=== PATIENT | male | born 1950 | race Caucasian/White ===

== ENCOUNTER 2020-03-31 23:30 | Emergency (ER) | payer OTHER ==
--- OUTSIDE RECORDS SUMMARY | 2020-03-31 23:32 | XMS REPORT | Clinical Summary ---
:1950 Author Organization [facility] Address [address] [place] [address] Care Team Providers Name Role Phone Stephanie Sahu MD Primary Care Provider Allergies Active Allergy Reactions Severity Noted Date Comments Penicillins 07/20/2016 Medications Medication Sig Dispensed Refills Start Date End Date Status montelukast Take 10 mg by 3 05/08/2016 Act haresh (SINGULAIR) 10 mg mouth once tablet daily. candesartan-hydrochl 0 05/29/2018 Active orothiazid (ATACAND HCT) 32-12.5 mg per tablet levothyroxine Take 175 mcg 0 11/20/2014 Ac tive (SYNTHROID, LEVOXYL) by mouth. 175 mcg tablet ezetimibe (ZETIA) 10 Take 10 mg by 3 07/24/2018 Active mg tablet mouth daily. amLODIPine (NORVASC) TAKE 1 TABLET 90 tablet 0 06/19/2019 Active 10 mg BY MOUTH ONCE tabletIndications: DAILY Essential hypertension, Carotid artery disease, unspecified laterality, unspecified type (HCC) amLODIPine (NORVASC) Take 1 tablet 90 tablet 3 02/19/201805/25 Discontinued 10 mg (10 mg total) tabletIndications: by mouth Essential daily. hypertension, Carotid artery disease, unspecified laterality, unspecified type (HCC) Active Problems Problem Noted Date Mixed hyperlipidemia 08/27/2018 Essential hypertension 01/16/2017 Carotid artery disease 01/16/2017 Carotid disease, bilateral 07/20/2016 Pure hypercholesterolemia 07/20/2016 Encounters Date Type Specialty Care Team Description 10/07/2019 Travel 08/21/2019 Travel 06/18/2019 Refill Cardiology Houston Pollard MD Med Refi ll after 03/31/2019 Medical History Medical History Date Comments Hyperlipidemia Hypertension Atrial fibrillation (HCC) Carotid artery occlusion Disease of thyroid gland Family History Medical History Relation Name Comments Diabetes Brother Cancer Father Heart attack Mother Heart disease Mother Hypertension Mother Relation Name Status Comments Brother Father Mother Social History Tobacco Use Types Packs/Day Years Used Date Never Smoker Smokeless Tobacco: Never Used Alcohol Use Drinks/Week oz/Week Comments No Sex Assigned at Date Recorded Not on file Last Filed Vital Signs Not on file Plan of Treatment Health Maintenance Due Date Last Done Comments COLONOSCOPY SCREENING 2002 SHINGLES VACCINES (#1) 2002 65+ PNEUMOCOCCAL VACCINE (1 of 1 - PPSV23) 2017 INFLUENZA VACCINE 11/22/2019 Procedures Procedure Name Priority Date/Time Associated Diagnosis Comme nts US CAROTID DUPLEX Routine 10/07/2019 4:34 PM Essential Res ults for this BILATERAL CDT hypertension procedure are in Mixed hyperlipid emia the results Bilateral carotid section. artery stenosis after 03/31/2019 Results Us carotid duplex (10/07/2019 4:34 PM CDT) Specimen Narrative Performed At [facility] Carotid Sandhya ry Ultrasound Report Pat.Name: JOSÉ KLEIN Pat.ID: [id number] .Date: 10/07/2019 Refer.MD: HOUSTON POLLARD MD Exam Time: 3:52:00 PM Study Type:C chaunceytid Age: 7 1950,68Y Sex: MALE Sonogrphr: Carmella Ellis RVT Pat. [facility] ol: [place], CPT - 4: 20017 Echo Liseth nt ID:[id number] Order ID: [id number] Reason for Study:Carotid artery stenosis , Follow up study, HLD, HTN Race: SUMMARY: CAROTID ARTERY SCAN RIGHT: There is smooth intimal lining in the common carotid artery. There is soft on hard plaque noted in th e bulb extending into the proximal internal and external carotid a rtery. Colorflow is disturbed with elevated velocities. There is an tegrade flow in the vertebral artery. LEFT: There is smooth intimal li abram in the common carotid artery. There is hard and soft plaque no kenan in the bulb extending into the proximal internal and external carot id artery. Colorflow is minimally disturbed. There is antegrad e flow in the vertebral artery. PRELIMINARY FINDINGS 1. 60-70% stenosis in the right bulb/i nternal carotid artery. 2. <50% stenosis in the left bulb/international marketing manager al carotid artery. 3. >50% stenosis in the bilateral rechecker al carotid artery. 4. There is antegrade flow in the verteb ral artery, bilaterally. In comparison to previous study, finding s demonstrate progression of disease on the right. PHYSICIAN INTERPRETATION Bilateral carotid duplex exam demonstrat es soft on hard atherosclerotic plaque with 60-70% stenosis in the right bulb/international marketing manager al carotid artery. <50% stenosis in the left bulb/internal carotid artery. >50% stenosis in the bilateral external carotid artery. Antegrade flow in the vertebral artery, bilaterally. FINDINGS: Carotid Findings: Right Left Verteb.Flw Antegrade Antegrade Subclavian Triphasic Triphasic MEASUREMENTS: DOPPLER Right CCA Dist CCA Dist PSV 77.4 cm/s CCA Dist EDV 12.4 cm/s Right CCA Mid CCA Mid PSV 69.6 cm/s CCA Mid EDV 9.28 cm/s Right CCA Prox CCA Prox PSV 108 cm/s CCA Prox EDV 10.8 cm/s Right Bulb Bulb PSV 173 cm/s Bulb EDV 37.1 cm/s Right ECA Prox ECA Prox PSV 189 cm/s ECA Prox EDV 12.4 cm/s Right ICA Dist ICA Dist PSV 93.3 cm/s ICA Dist EDV 28 cm/s Right ICA Mid ICA Mid PSV 132 cm/s ICA Mid EDV 28 cm/s Right ICA Prox ICA Prox PSV 278 cm/s ICA Prox EDV 65 cm/s Right Vertebral Vertebral PSV 53 cm/s Vertebral EDV 9.76 cm/s Left CCA Dist CCA Dist PSV 63.4 cm/s CCA Dist EDV 11.2 cm/s Left CCA Mid CCA Mid PSV 90.9 cm/s CCA Mid EDV 13.7 cm/s Left CCA Prox CCA Prox PSV 118 cm/s CCA Prox EDV 15.4 cm/s Left Bulb Bulb PSV 56.9 cm/s Bulb EDV 10.9 cm/s Left ECA ECA PSV 162 cm/s ECA EDV 5.6 cm/s Left ICA Dist ICA Dist PSV 100 cm/s ICA Dist EDV 27.9 cm/s Left ICA Mid ICA Mid PSV 83.6 cm/s ICA Mid EDV 20.9 cm/s Left ICA Prox ICA Prox PSV 59.9 cm/s ICA Prox EDV 16.7 cm/s Left Vertebral Vertebral PSV 69.7 cm/s Vertebral EDV 12.5 cm/s Left SCA Prox SCA Prox PSV 177 cm/s SCA Prox EDV 0 cm/s Left ECA Prox ECA Prox PSV 162 cm/s ECA Prox EDV 6 cm/s Right SCA Prox SCA Prox PSV 129 cm/s Right ICA/CCA Ratio ICA/CCA PSV 3.99 Left ICA/CCA Ratio ICA/CCA PSV 0.659 Signed 10/09/2019 06:35 AM Houston Pollard MD Procedure Note Interface, Radiology Results In - 2019 6:35 AM CDT [facility] Carotid Artery Ultras ound Report Pat.Name: JOSÉ KLEIN Pat.I D: [id number] St.Date: 10/07/2019 Refer .MD: HOUSTON POLLARD MD Exam Time: 3:52:00 PM Study Type:Carotid Age: 7 1950,68Y Sex: MALE Sonogrphr: Carmella Ellis RVT Pat. Stat.:Outpatient Room: [facility] Vol: SD, CPT - 4: 08331 Echo Event ID:[id number] Order ID: [id number] Reason for Study:Carotid artery stenosis , Follow up study, HLD, HTN Race: SUMMARY: CAROTID ARTERY SCAN RIGHT: There is smooth intimal lining i n the common carotid artery. There is soft on hard plaque noted in th e bulb extending into the proximal internal and external carotid a rtery. Colorflow is disturbed with elevated velocities. There is ant egrade flow in the vertebral artery. LEFT: There is smooth intimal linin g in the common carotid artery. There is hard and soft plaque no kenan in the bulb extending into the proximal internal and external carot id artery. Colorflow is minimally disturbed. There is antegrade flow in the vertebral artery. PRELIMINARY FINDINGS 1. 60-70% stenosis in the right bulb/in ternal carotid artery. 2. <50% stenosis in the left bulb/international marketing manager al carotid artery. 3. >50% stenosis in the bilateral rechecker al carotid artery. 4. There is antegrade flow in the verteb ral artery, bilaterally. In comparison to previous study, finding s demonstrate progression of disease on the right. PHYSICIAN INTERPRETATION Bilateral carotid duplex exam demonstrat es soft on hard atherosclerotic plaque with 60-70% stenosis in the right bulb/international marketing manager al carotid artery. <50% stenosis in the left bulb/internal carotid artery. >50% stenosis in the bilateral external carotid artery. Antegrade flow in the vertebral artery, bilaterally. FINDINGS: Carotid Findings: Right Left Verteb.Flw Antegrade Antegrade Subclavian Triphasic Triphasic MEASUREMENTS: DOPPLER Right CCA Dist CCA Dist PSV 77.4 cm/s CCA Dist EDV 12.4 cm/s Right CCA Mid CCA Mid PSV 69.6 cm/s CCA Mid EDV 9.28 cm/s Right CCA Prox CCA Prox PSV 108 cm/s CCA Prox EDV 10.8 cm/s Right Bulb Bulb PSV 173 cm/s Bulb EDV 37.1 cm/s Right ECA Prox ECA Prox PSV 189 cm/s ECA Prox EDV 12.4 cm/s Right ICA Dist ICA Dist PSV 93.3 cm/s ICA Dist EDV 28 cm/s Right ICA Mid ICA Mid PSV 132 cm/s ICA Mid EDV 28 cm/s Right ICA Prox ICA Prox PSV 278 cm/s ICA Prox EDV 65 cm/s Right Vertebral Vertebral PSV 53 cm/s Vert ebral EDV 9.76 cm/s Left CCA Dist CCA Dist PSV 63.4 cm/s CCA Dist EDV 11.2 cm/s Left CCA Mid CCA Mid PSV 90.9 cm/s CCA Mid EDV 13.7 cm/s Left CCA Prox CCA Prox PSV 118 cm/s CCA Prox EDV 15.4 cm/s Left Bulb Bulb PSV 56.9 cm/s Bulb EDV 10.9 cm/s Left ECA ECA PSV 162 cm/s ECA EDV 5.6 cm/s Left ICA Dist ICA Dist PSV 100 cm/s ICA Dist EDV 27.9 cm/s Left ICA Mid ICA Mid PSV 83.6 cm/s ICA Mid EDV 20.9 cm/s Left ICA Prox ICA Prox PSV 59.9 cm/s ICA Prox EDV 16.7 cm/s Left Vertebral Vertebral PSV 69.7 cm/s Vert ebral EDV 12.5 cm/s Left SCA Prox SCA Prox PSV 177 cm/s SCA Prox EDV 0 cm/s Left ECA Prox ECA Prox PSV 162 cm/s ECA Prox EDV 6 cm/s Right SCA Prox SCA Prox PSV 129 cm/s Right ICA/CCA Ratio ICA/CCA PSV 3.99 Left ICA/CCA Ratio ICA/CCA PSV 0.659 Signed 10/09/2019 06:35 AM Houston Pollard MD Performing Organization Address City/State/ZIP Code Phon e Number CUPID [id number] [place] [address] after 03/31/2019 Advance Directives For more information, please contact: [phone] Type Date Recorded Patient Seo Specialist Explanati on Advance Directives, Living Will and Medical Power of Digital Imaging Specialist
--- OUTSIDE RECORDS SUMMARY | 2020-03-31 23:33 | XMS REPORT | Summary of Care ---
:1950 Author Organization [facility] Address [address] [place] [address] Care Team Providers Name Role Phone Lobo Sahu Primary Care Provider Reason for Visit Radiology Services (Routine) Status Reason Specialty Diagnoses / Referred By Referred To Procedures Contact Contact New Request Diagnostic Diagnoses Pain Daniel Porter Radiology Procedures XR FOOT <3 VW [facility] MD Jad [address] [place] [id number] Encounter Details Date Type Department Care Team Description 01/05/2020 Hospital Encounter [facility] [address] [facility] [address] [place] [phone] Allergies Active Allergy Reactions Severity Noted Date Comments Penicillins Anaphylaxis 11/03/2014 documented as of this encounter (statuses as of 01/06/2020) Medications Medication Sig Dispensed Refills Start Date End Date Status levothyroxine Take 1 Tab by 30 Tab 0 11/20/2014 A ctive (SYNTHROID) 175 mcg mouth every tablet morning. Additional Information Patient taking differently: 200 mcg Oral QAM, Reported on 01/05/2020 3:19 PM montelukast (SINGULAIR) 10 mg Take 1 Tab by mouth 30 Tab 0 11/20/2014 Active tablet every evening. amLODIPine 5 mg tablet Take 5 mg by mouth 0 Active daily. CANDESARTAN-HYDROCHLOROTHIAZI Take by mouth. 16-6.25 0 Active D ORAL mg daily ezetimibe (ZETIA) 10 mg Take 10 mg by mouth 0 Active tablet daily. pravastatin 10 mg tablet Take 10 mg by mouth at 0 Active bedtime. fexofenadine 180 mg tablet Take 180 mg by mouth 0 Active daily. TADALAFIL ORAL Take 6 mg by mouth. 0 Active diclofenac 75 mg EC Take 1 tablet by mouth 2 60 tablet 1 01/04 Active tabletIndications: Pain (two) times daily with meals. documented as of this encounter (statuses as of 01/06/2020) Active Problems Problem Noted Date Total knee replacement status 11/17/2014 Osteoarthritis of right knee 11/03/2014 documented as of this encounter (statuses as of 01/06/2020) Social History Tobacco Use Types Packs/Day Years Used Date Never Smoker Smokeless Tobacco: Never Used Alcohol Use Drinks/Week oz/Week Comments No Sex Assigned at Date Recorded Not on file documented as of this encounter Last Filed Vital Signs Not on filedocumented in this encounter Plan of Treatment Name Type Priority Associated Diagnoses Date/Ti me XR FOOT <3 VW RIGHT IMAGING Routine Pain 01/05/20 20 3:40 PM CDT Name Type Priority Associated Diagnoses Order S chedule XR FOOT <3 VW RIGHT IMAGING Routine Pain ONCE for 1 Occurrences starting 2019 until 01/05/2020 Health Maintenance Due Date Last Done Comments HEPATITIS C (HCV) SCREEN 1950 Depression Screening 1964 DTaP,Tdap,and Td Vaccines (1 - Tdap) 11/07/1971 COLON CANCER SCREENING ANNUAL FIT/FOBT 2002 COLON CANCER SCREENING FIT DNA EVERY 3 YEARS 2002 COLON CANCER SCREENING SIGMOIDOSCOPY EVERY 5 YEARS 2002 COLONOSCOPY 2002 Colorectal Cancer Screening 2002 Zoster Recombinant Vaccine (SHINGRIX) (1 of 2) 2002 Medicare Wellness Visit 2017 PNEUMOCOCCAL VACCINES 65+ (1 of 1 - PPSV23) 2017 INFLUENZA VACCINE (#1) 2019 documented as of this encounter Implants Implanted Type Area Tilesetter Device Shelf Model / Identifier Expiration Date Ser ial / Lot [place] Hv Bone Cement CEMENT Right: Biomet 04/23/19 16 [id number] / Implanted: Qty: 2 on 11/17/2014 by Vilma Forman MD at [facility] Knee [id number] / [id number] V[employer] Knee System Cr Tibial Bearing KNEE Right: Biomet 07/09/2019 [id number] / Implanted: Qty: 1 on 11/17/2014 by Vilma Forman MD at [facility] Knee [id number] / [id number] [employer] Knee System Cr Femoral Right KNEE Right: Biomet 07/24/2024 [id number] / Implanted: Qty: 1 on 11/17/2014 by Vilma Formna MD at [facility] Knee [id number] / [id number] Primary Tibial Plate KNEE Right: Biomet [id number] / Implanted: Qty: 1 on 11/17/2014 by Vilma Forman MD at [facility] Knee [id number] / [id number] Self Tapping Bone Screw SCREW Right: Biomet 2024 [id number] / Implanted: Qty: 1 on 11/17/2014 by Vilma Forman MD at [facility] Knee [id number] / [id number] Modular Finned Stem With Screw SCREW Right: Biomet 08/10/2024 [id number] / Implanted: Qty: 1 on 11/17/2014 by Vilma Forman MD at [facility] Knee [id number] / [id number] Low Profile Self Tapping Screw SCREW Right: Biomet 03/23/2024 [id number] / Implanted: Qty: 1 on 11/17/2014 by Vilma Forman MD at [facility] Knee [id number] / [id number] Low Profile Self Tapping Screw SCREW Right: Biomet 05/24/2023 [id number] / Implanted: Qty: 1 on 11/17/2014 by Vilma Forman MD at [facility] Knee [id number] / [id number] Low Profile Self Tapping Screw SCREW Right: Biomet 03/23/2024 [id number] / Implanted: Qty: 1 on 11/17/2014 by Vilma Forman MD at [facility] Knee [id number] / [id number] documented as of this encounter Results Not on filedocumented in this encounter Visit Diagnoses Diagnosis Pain Generalized pain documented in this encounter Insurance Payer Benefit Plan Subscriber ID Effective Phone Address Typ e / Group Dates AETNA - AETNA [id number] 2019-Prese P O BOX Medic are Adv MANAGED MEDICARE [place] nt [id number] [place] [address] documented as of this encounter
--- OUTSIDE RECORDS SUMMARY | 2020-03-31 23:33 | XMS REPORT | Summary of Care ---
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 / Left hand/right foot pa in / No Films Encounter Details Date Type Department Care Team Description 01/05/2020 Office Visit [facility] Orthopaedic Daniel Porter L , Pain (Primary Dx) Surgery- [facility] [address] [facility] [address] [place] [address] [place], [place] [phone] Allergies Active Allergy Reactions Severity Noted Date Comments Penicillins Anaphylaxis 11/03/2014 documented as of this encounter (statuses as of 03/03/2020) Medications Medication Sig Dispensed Refills Start Date [...] as of this encounter (statuses as of 03/03/2020) Active Problems Problem Noted Date Total knee replacement status 11/17/2014 Osteoarthritis of right knee 11/03/2014 documented as of this encounter (statuses as of 03/03/2020) Social History Tobacco Use Types Packs/Day Years Used Date Never Smoker Smokeless Tobacco: Never Used Alcohol Use Drinks/Week oz/Week Comments No Sex Assigned at Date Recorded Not on file documented as of this encounter Last Filed Vital Signs Vital Sign Reading Time Taken Comments Blood Pressure 129/72 01/05/2020 3:13 PM CDT Pulse 60 01/05/2020 3:13 PM CDT Temperature - - Respiratory Rate - - Oxygen Saturation - - Inhaled Oxygen Concentration - - Weight 112 kg (247 lb) 01/05/2020 3:13 PM CDT Height 176.5 cm (5' 9.5") 01/05/2020 3:13 PM CDT Body Mass Index 35.95 01/05/2020 3:13 PM CDT documented in this encounter Progress Notes Daniel Porter MD - 01/05/2020 3:00 PM CDT Chief Complaint Patient presents with 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 Right foot on the lateral side gets tender. No injury to either extremity. José Klein is a 69 year old male. Here for right foot pain and tenderness Left hand mass Hand Pain The incident occurred more than 1 week ago. The incident occurred at home. There was no injury mechanism. The pain is present in the left hand. The quality of the pain is described as aching. The pain is at a severity of 1/10. The pain is mild. Allergies José is allergic to penicillins. Medications Outpatient Medications Prior to Visit Medication Sig Dispense Refill amLODIPine 5 mg tablet Take 5 mg by mouth daily. CANDESARTAN-HYDROCHLOROTHIAZID ORAL Take by mouth. 16-6.25 mg daily ezetimibe (ZETIA) 10 mg tablet Take 10 mg by mouth daily. fexofenadine 180 mg tablet Take 180 mg by mouth daily. pravastatin 10 mg tablet Take 10 mg by mouth at bedtime. TADALAFIL ORAL Take 6 mg by mouth. levothyroxine (SYNTHROID) 175 mcg tablet Take 1 Tab by mouth every morning. (Patient taking differently: Take 200 mcg by mouth every morning.) 30 Tab 0 montelukast (SINGULAIR) 10 mg tablet Take 1 Tab by mouth every evening. 30 Tab 0 No facility-administered medications prior to visit. 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 Arthritis PONV (postoperative nausea and vomiting) Thyroid disease Past Surgical History: Procedure Laterality Date JOINT SURGERY LAPAROSCOPIC BARIATRIC GASTRIC BYPASS N/A OPEN SHOULDER ROTATOR CUFF REPAIR Bilateral REMOVAL OF HEEL SPUR Bilateral TOTAL KNEE ARTHROPLASTY Right 11/17/2014 Surgeon: Vilma Damon MD; [place] [facility] [place] Social History Socioeconomic History Marital status: Spouse name: Not on file Number of children: Not on file Years of education: Not on file Highest education level: Not on file Occupational History Not on file Social Needs Financial resource strain: Not on file Food insecurity Worry: Not on file Inability: Not on file Transportation needs Medical: Not on file Non-medical: Not on file Tobacco Use Smoking status: Never Smoker Smokeless tobacco: Never Used Substance and Sexual Activity Alcohol use: No Drug use: No Sexual activity: Not on file Lifestyle Physical activity Days per week: Not on file Minutes per session: Not on file Stress: Not on file Relationships Social connections Talks on phone: Not on file Gets together: Not on file Attends protestant service: Not on file Active member of club or organization: Not on file Attends meetings of clubs or organizations: Not on file Relationship status: Not on file Intimate partner violence Fear of current or ex partner: Not on file Emotionally abused: Not on file Physically abused: Not on file Forced sexual activity: Not on file Other Topics Concern Not on file Social History Narrative Not on file Family History Family history unknown: Yes Review of Systems Constitutional: Negative. HENT: Negative. Eyes: Negative. Respiratory: Negative. Breasts: Negative. Cardiovascular: Negative. Gastrointestinal: Negative. Genitourinary: Negative. Neurological: Negative. Psychiatric/Behavioral: Negative. Endocrine: Endocrine negative Vital Signs BP 129/72 (BP Location: Left arm, Patient Position: Sitting, BP CUFF SIZE: Adult Large) | Pulse 60| Ht 69.5" (176.5 cm) | Wt 112 kg (247 lb) | BMI 35.95 kg/m Pain 2/10 left hand and right foot. Physical Exam Musculoskeletal: Comments: General: Well-developed well-nourished oriented to person place and time HEENT normocephalic atraumatic atraumatic pupils equal round reactive to light extraocular muscles intact Cervical thoracic and lumbar spine without focal deficit normal kyphosis and lordosis Chest clear to auscultation and percussion Cardiovascular regular rate and rhythm without gallop rub or murmur soft without organomegaly Normal bowel sounds Neurologic: Focal myotome or dermatomal deficits Vascular: Intact symmetrical bilateral upper and lower extremities Skin without stasis varicosities or breakdown Extremities without cyanosis clubbing or edema Lymphatics no peripheral lymphedema Psych normal mood and affect. Neurovascular function is intact. To include brisk capillary refill warm pink skin active motor function and sensory function intact. 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 Plan of Treatment Name Type Priority Associated Diagnoses Date/Ti me XR FOOT <3 VW RIGHT IMAGING Routine Pain 01/05/20 20 3:40 PM CDT Name Type Priority Associated Diagnoses Order S chedule XR FOOT <3 VW RIGHT IMAGING Routine Pain Expected : 01/05/2020, Expires: 2020 Health Maintenance Due Date Last Done Comments [...] of this encounter Implants Implanted Type Area Take Out Waiter Device Shelf Model / Identifier Expiration Date Ser ial / Lot [place] Hv Bone Cement CEMENT Right: Biomet 04/23/19 16 [id number] / Implanted: Qty: 2 on 11/17/2014 by Vilma Forman MD at [facility] Knee [id number] / [id number] V[employer] Knee System Cr Tibial Bearing KNEE Right: Biomet 07/09/2019 [id number] / Implanted: Qty: 1 on 11/17/2014 by Vilma Forman MD at [facility] Knee [id number] / [id number] [employer] Knee System Cr Femoral Right KNEE Right: Biomet 07/24/2024 [id number] / Implanted: Qty: 1 on 11/17/2014 by Vilma Forman MD at [facility] Knee [id number] / [id number] Primary Tibial Plate KNEE Right: Biomet [id number] / Implanted: Qty: 1 on 11/17/2014 by Vilma Forman MD at [facility] Knee [id number] / [id number] Self Tapping Bone Screw SCREW Right: Biomet 2024 [id number] / Implanted: Qty: 1 on 11/17/2014 by Vilma Forman MD at [facility] Knee [id number] / [id number] Modular Finned Stem With Screw SCREW Right: [employer]omet 08/10/2024 [id number] / Implanted: Qty: 1 on 11/17/2014 by Vilma Forman MD at [facility] Knee [id number] / [id number] Low Profile Self Tapping Screw SCREW Right: [employer]omet 03/23/2024 [id number] / Implanted: Qty: 1 on 11/17/2014 by Vilma Forman MD at [facility] Knee [id number] / [id number] Low Profile Self Tapping Screw SCREW Right: [employer]omet 05/24/2023 [id number] / Implanted: Qty: 1 on 11/17/2014 by Vilma Forman MD at [facility] Knee [id number] / [id number] Low Profile Self Tapping Screw SCREW Right: [employer]omet 03/23/2024 [id number] / Implanted: Qty: 1 on 11/17/2014 by Vlima Forman MD at [facility] Knee [id number] / [id number] documented as of this encounter Results Not on filedocumented in this encounter Visit Diagnoses Diagnosis Pain - Primary Generalized pain documented in this encounter Insurance Payer Benefit Plan Subscriber ID Effective Phone Address Typ e / Group Dates AETNA - AETNA [id number] 2019-Prese P O BOX Medic are Adv MANAGED MEDICARE ADV [place] [id number] [place] [address] documented as of this encounter
--- OUTSIDE RECORDS SUMMARY | 2020-03-31 23:33 | XMS REPORT | Continuity of Care Document ---
:1950 Author Organization [facility] t Address [address] [place] [place] [address] Care Team Providers Name Role Phone Luis Alberto LAWRENCE, B Primary Care Physician German LAWRENCE, L Attending Clinician Michael LAWRENCE, R. 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 9-26 Methodi disease disease 00:00: st 00 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, disease, 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 00:00: st 00 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 3-30 Me thodi sterolemia sterolemia 00:00: st 00 Allergies, Adverse Reactions, Alerts Allergy Allergy Status Severity Reaction(s) Onset Inactive Treating Comm ents Source Name Type Date Date Clinician Penicill DA Active U 2019-04 [facility] ins 1-13 [place] 00:00: Health [address] Penicill Propensi Active [place] ins ty to 330 Methodi adverse 00:00: st reaction 00 s to drug Family History Family Member Diagnosis Comments Start Date Stop Date Source Natural brother Diabetes [facility] Natural mother Heart [facility] Natural mother Heart disease [facility] Natural mother Hypertension [facility] Social History Social Habit Start Date Stop Date Quantity Comments Source Sex Assigned At [facility] ethodi Tobacco use and 2018-08-27 2018-08-27 Never used [facility] ethodist exposure 00:00:00 00:00:00 Alcohol intake 2018-08-27 2018-08-27 [facility] 00:00:00 non-drinker of alcohol (finding) Smoking Status Start Date Stop Date Source Never smoker [facility] Medications Ordered Filled Start Stop Current Ordering Indication Dosage Frequency Signature Comments Components Source Medication Medication Date Date Medication? Clinician (SIG) Name Name amLODIPine Yes Carotid TAKE 1 Ho usphil (NORVASC) 2-27 artery TABLET BY Met hodi 10 mg 00:00: disease, MOUTH ONCE st tablet 00 unspecified DAILY laterality, unspecified type (HCC) ezetimibe Yes 10mg QD Take 10 mg Ho usphil (ZETIA) 10 4-03 by mouth Metho di mg tablet 00:00: daily. st 00 candesartan Yes [place] -hydrochlor 2-06 Methodi othiazid 00:00: st (ATACAND 00 HCT) 32-12.5 mg per tablet amLODIPine 2017-04 Carotid 10mg QD Take 1 H ousixto (NORVASC) 0-30 02-27 artery tablet (10 M ethodi 10 mg 00:00: 00:00 disease, mg total) st tablet 00 :00 unspecified by mouth laterality, daily. unspecified type (HCC) montelukast 2016- Yes 10mg QD Take 10 mg Vasquez (SINGULAIR) 1-16 by mouth Meth ly 10 mg 00:00: once st tablet 00 daily. levothyroxi Yes 175ug Take 175 [place] 7-31 mcg by Methodi (SYNTHROID, 00:00: mouth. st LEVOXYL) 00 175 mcg tablet Procedures Procedure Date / Time Performed Performing Clinician [facility] e US CAROTID DUPLEX 2019-10-07 16:34:01 [place] Rodriguez Or thodist BILATERAL Plan of Care Planned Activity Planned Date Details Comments Source Future Scheduled 2019-11-22 INFLUENZA VACCINE [place] [facility] 00:00:00 [code = INFLUENZA VACCINE] Future Scheduled 2017 65+ PNEUMOCOCCAL [facility] 00:00:00 VACCINE (1 of 1 - PPSV23) [code = 65+ PNEUMOCOCCAL VACCINE (1 of 1 - PPSV23)] Future Scheduled 2002 COLONOSCOPY SCREENING [facility] 00:00:00 [code = COLONOSCOPY SCREENING] Future Scheduled 2002 SHINGLES VACCINES (#1) [facility] 00:00:00 [code = SHINGLES VACCINES (#1)] Encounters Start End Encounter Admission Attending Care Care Encounter Source Date/Time Date/Time Type Type Clinicians Facility Department ID 2020-02-23 2020-02-23 Outpatient [facility] LBS [id number] [facility] 13:44:00 23:59:00 2020-01-05 2020-01-05 Office GABRIELLE Porter [id number] 15:07:41 15:48:12 Visit [facility] [id number] Surgical [id number] Specialti [id number] es [address] [place] 2019-10-13 2019-10-13 Outpatient [facility]BL [id number] 05:17:00 05:17:00 2019-10-07 2019-10-07 Outpatient [facility] [id number] 541 [place] 00:00:00 00:00:[address] Results Test Description Test Time Test Comments Results Result Comments Source Novel Coronavirus 2018 Inhouse 2020-03-07 20:07:00 Test Item Value Reference Range Interpretation Comme nts Novel Coronavirus 2018 Not Detected Not Detected Testi ng was performed using the Inhouse (test code = Aptima SARS-CoV-2 assay.This COVNONPUI) nucleic acid am plification test was developed a nd itsperformance characteristics determined by [facility]. Nucleic acid amplification t ests include PCRand TMA. Thi s test has not been FDA cleare d or approved.This test has been a uthorized by FDA under an Emerge ncy UseAuthorizatio n (EUA). This test is only authori zed forthe duration of yvette e the declaration that circumstan cesexist justifying the authorization of the emergency u se ofin vitro diagnostic test s for detection of SARS-CoV-2 viru sand/or diagnosis of COVID-19 inf ection under adkxqdt171(b)(1 ) of the Act, 21 U.S.C. 360bbb-3 (b) (1), unless theauthorizatio n is terminated or revoked sooner. When diagnostic testing is nega tive, the possibility of afalse negative result should b e considered in the contextof a patient's recent exposures and t he presence ofclinical sign s and symptoms consistent with COVID-19. Anindividual wi thout symptoms of COVID-19 and wh o is notshedding SARS-CoV-2 viru s would expect to have a negative (not detected) result in this assay.Performed At: [facility] [id number] [place], [place] [id number] MD Ph:[phone] BASIC METABOLIC [id number] 17:39:00 Test Item Value Reference Range Interpretation Comments SODIUM (test code 136 MMOL/L 136-143 N = NA) POTASSIUM (test 4.2 MMOL/L 3.5-5.1 N code = K) CHLORIDE (test 97 MMOL/L 98-107 L code = CL) CARBON DIOXIDE 30 mmol/L 24-31 N (test code = CO2) GLUCOSE (test code 99 mg/dL 70-104 N = GLU) BLOOD UREA 19.4 MG/DL 7.0-21.0 N NITROGEN (test code = BUN) GLOMERULAR >=60 max >60 The estimated FILTRATION RATE estimate glomerular (test code = GFR) filtration rate is computed usingpatient ra ce, age (>18), sex, and serum creatinin e. If anyof the neede d data elements a re missing the Laboratory tania ot compute an estimation of t he glomerular filtration rate . CREATININE (test 0.9 mg/dL 0.8-1.5 N code = CREAT) CALCIUM (test code 9.3 mg/dL 8.8-10.2 N = CA) CBC W/AUTO [id number] 17:22:00 Test Item Value Reference Range Interpretation Comments WHITE BLOOD CELL (test code = 6.9 x10 3/uL 4.8-10.8 N WBC) RED BLOOD CELL (test code = 4.89 x10 6/uL 4.70-6.10 N RBC) HEMOGLOBIN (test code = HGB) 15.6 g/dL 14.5-20 N HEMATOCRIT (test code = HCT) 46.2 % 42.0-52.0 N MEAN CELL VOLUME (test code = 94.5 fL 80.0-94.0 H MCV) MEAN CELL HGB (test code = MCH) 31.9 pg 27-31 H MEAN CELL HGB CONCENTRATION 33.8 G/DL 33-36.5 N (test code = MCHC) RED CELL DISTRIBUTION WIDTH 12.2 % 12.9-16.9 L (test code = RDW) PLATELET COUNT (test code = 202 150-440 N PLT) MEAN PLATELET VOLUME (test code 11.5 fL 8.9-12.4 N = MPV) NEUTROPHIL % (test code = NT%) 53.2 % 42.2-75.2 N LYMPHOCYTE % (test code = LY%) 31.4 % 20.5-51.1 N MONOCYTE % (test code = MO%) 9.6 % 1.7-9.3 H EOSINOPHIL % (test code = EO%) 4.4 % 0.0-7.0 N BASOPHIL % (test code = BA%) 1.3 % 0-2.5 N NEUTROPHIL # (test code = NT#) 3.65 x10 3/uL 1.80-7.70 N LYMPHOCYTE # (test code = LY#) 2.16 x10 3/uL 1.00-4.80 N MONOCYTE # (test code = MO#) 0.66 x10 3/uL 0.00-0.80 N EOSINOPHIL # (test code = EO#) 0.30 x10 3/uL 0.00-0.45 N BASOPHIL # (test code = BA#) 0.09 x10 3/uL 0.0-0.20 N
--- OUTSIDE RECORDS SUMMARY | 2020-03-31 23:33 | XMS REPORT | Summary of Care ---
:1950 Author Organization [facility] [[email or web address]] - 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 in / No Films Encounter Details Date Type Department Care Team Description 01/05/2020 Office Visit [facility] Orthopaedic Daniel Porter L , Pain (Primary Dx) Surgery- Genevieve LAWRENCE [address] [facility] [address] [place] [address] [place], [place] [phone] Allergies Active Allergy Reactions Severity Noted [...] Chief Complaint 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 / Left 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 / No [...] Right 11/17/2014 Surgeon: Vilma Damon MD; [place] [facility] Social History Socioeconomic History Marital [...] file Gets together: Not on file Attends mosque service: Not on file Active member of [...] Fibromatosis Right foot pain Keep under 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 documented in this encounter Plan of Treatment [...] of this encounter Implants Implanted Type Area Well Digger Device Shelf Model / Identifier Expiration Date Ser ial / Lot [place] Hv Bone Cement CEMENT Right: Biomet 04/23/19 16 [id number] / Implanted: Qty: 2 on 11/17/2014 by Vilma Forman MD at [facility] Knee [id number] / [id number] Vanguard Knee System Cr Tibial Bearing KNEE Right: Biomet 07/09/2019 [id number] / Implanted: Qty: 1 on 11/17/2014 by Vilma Forman MD at [facility] Knee [id number] / [id number] Vanguard Knee System Cr Femoral Right KNEE Right: Biomet 07/24/2024 [id number] / Implanted: Qty: 1 on 11/17/2014 by Vilma Forman MD at [facility] Knee [id number] / [id number] Primary Tibial Plate KNEE Right: Biomet [id number] / Implanted: Qty: 1 on 11/17/2014 by Vilma Forman MD at [facility] Knee [id number] / [id number] Self Tapping Bone Screw SCREW Right: Biomet 2024 [id number] / Implanted: Qty: 1 on 11/17/2014 by Vilma Forman MD at [facility] Knee [id number] / [id number] Modular Finned Stem With Screw SCREW Right: [employer]omet 08/10/2024 [id number] / Implanted: Qty: 1 on 11/17/2014 by Vilma Forman MD at [facility] Knee [id number] / [id number] Low Profile Self Tapping Screw SCREW Right: [employer]omet 03/23/2024 [id number] / Implanted: Qty: 1 on 11/17/2014 by Vilma Forman MD at [facility] Knee [id number] / [id number] Low Profile Self Tapping Screw SCREW Right: [employer]omet 05/24/2023 [id number] / Implanted: Qty: 1 on 11/17/2014 by Vilma Forman MD at [facility] Knee [id number] / [id number] Low Profile Self Tapping Screw SCREW Right: [employer]omet 03/23/2024 [id number] / Implanted: Qty: 1 on 11/17/2014 by Vilma Forman MD at [facility] Knee [id number] / [id number] documented as of this encounter Results Not on filedocumented in this encounter Visit Diagnoses Diagnosis Pain - Primary Generalized pain documented in this encounter Insurance Payer Benefit Plan Subscriber ID Effective Phone Address Typ e / Group Dates AETNA - AETNA [id number] 2019-Prese P O BOX Medic are Adv MANAGED MEDICARE ADV [place] [id number] [place] [phone] documented as of this encounter
[2020-03-31] MEDS ORDERED: NA CHLORIDE 0.9% 2,000 ML ONE (23:57)
[2020-04-01] MEDS ORDERED: NA CHLORIDE 0.9% 250 ML ONE ×2 (00:01→01:15)
[2020-04-01] MEDS ORDERED: NA CHLORIDE 0.9% 1,000 ML ONE (00:01)
[2020-04-01] MEDS ORDERED: PANTOPRAZOLE 40 MG INJ ONE (00:01)
[2020-04-01 00:13] LABS: Absolute Lymphocytes (CBC) 2.8 K/uL (0.7-4.9); Hematocrit 29.5 % (39.6-49.0); Lymphocytes % 31.6 % (15.3-44.8); MPV 10.4 fL (7.6-11.3); RBC Red Blood Cell Count 3.17 M/uL (4.33-5.43)
[2020-04-01 00:29] LABS: ALT/SGPT 36 U/L (12-78); AST/SGOT 21 U/L (15-37); Albumin 2.8 g/dL (3.4-5.0); Alkaline Phosphatase 62 U/L (45-117); BUN Blood Urea Nitrogen 48 mg/dL (7-18); Bicarbonate 24 mmol/L (21-32); Bilirubin Direct < 0.1 mg/dL (0-0.2); Bilirubin Total 0.4 mg/dL (0.2-1.0); Glucose Level 275 mg/dL (74-106); Lipase 74 U/L (73-393); Potassium 4.4 mmol/L (3.5-5.1); Protein, Total 5.5 g/dL (6.4-8.2); Sodium Level 141 mmol/L (136-145)
[2020-04-01] MEDS ORDERED: ONDANSETRON 4 MG/2 ML VIAL ONE (00:31)
--- NOTE | 2020-04-01 00:55 | ER ---
Nurse's Notes [facility] Name: José Klein Age: 69 yrs Sex: Male : 1950 Arrival Date: 03/31/2020 Time: 23:32 Bed 3 Private MD: Diagnosis: Upper GI bleed;Hypotension, unspecified;Anemia, unspecified Presentation: 03/31 23:36 Chief complaint: Patient states: had dark black stool this evening, BP was 85 systolic, iw is feeling weak and dizzy , denies abd pain, +nausea, no vomiting. Coronavirus screen: At this time, the client does not indicate any symptoms associated with coronavirus-19. Ebola Screen: Patient negative for fever greater than or equal to 101.5 degrees Fahrenheit, and additional compatible Ebola Virus Disease symptoms Patient denies exposure to infectious person. Patient denies travel to an Ebola-affected area in the 21 days before illness onset. No symptoms or risks identified at this time. Initial Sepsis Screen: Does the patient meet any 2 criteria? No. Patient's initial sepsis screen is negative. Does the patient have a suspected source of infection? No. Patient's initial sepsis screen is negative. Risk Assessment: Do you want to hurt yourself or someone else? Patient reports no desire to harm self or others. Onset of symptoms was March 31, 2020. 23:36 Method Of Arrival: Wheelchair iw 23:36 Acuity: WESLEY 2 iw Historical: - Allergies: 23:38 PENICILLINS; iw - PMHx: 23:38 Hypertension; iw - Immunization history:: Adult Immunizations up to date. - Family history:: not pertinent. - Social history:: Smoking status: unknown. - Hospitalizations: : No recent hospitalization is reported. Screenin/10 00:15 Abuse screen: Denies threats or abuse. Denies injuries from another. Nutritional rv screening: No deficits noted. Tuberculosis screening: No symptoms or risk factors identified. Fall Risk None identified. Assessment: 00:14 General: Appears ill, Behavior is calm, cooperative. Pain: Denies pain. Neuro: Level of rv Consciousness is awake, alert, obeys commands, Oriented to person, place, time, situation. Cardiovascular: Patient's skin is warm and dry. Respiratory: Airway is patent Respiratory effort is even, unlabored. Derm: Skin is pale. 00:30 GI: Stools are reported to be black. rv 01:08 Reassessment: blood pressure decreased to 69/40, patient is alert and oriented. rv referred to Dr Hernandez, given another bag of NS as bolus. blood pressure increased after the bolus. Dr Hernandez talked to the patient and relative at bedside, regarding the test results and plan of care. consent for blood transfusion signed. 04:56 General: Appears comfortable, Behavior is calm, cooperative. Pain: Denies pain. Neuro: rv Level of Consciousness is awake, alert, obeys commands, Oriented to person, place, time, situation. Cardiovascular: Patient's skin is warm and dry. Rhythm is sinus rhythm. Respiratory: Airway is patent Respiratory effort is even, unlabored. Derm: Skin is pink. 04:57 Reassessment: report given to nurse Pham of [facility]. awaiting EMS. patient and family rv updated. Vital Signs: 03/31 23:36 BP 78 / 48; Pulse 82; Resp 16; Temp 97.6; Pulse Ox 100% on R/A; Weight 111.13 kg; iw Height 5 ft. 8 in. (172.72 cm); 04/01 00:00 BP 96 / 60; Pulse 69; Resp 16; Pulse Ox 99% on R/A; rv 00:15 BP 69 / 40; Pulse 63; Resp 16; Pulse Ox 100% on R/A; rv 00:30 BP 86 / 51; Pulse 62; Resp 15; Pulse Ox 100% on R/A; rv 00:45 BP 107 / 70; Pulse 69; Resp 16; Pulse Ox 99% on R/A; rv 00:53 BP 107 / 70; rn 01:00 BP 110 / 44; Pulse 69; Resp 16; Pulse Ox 100% on R/A; rv 02:00 BP 111 / 49; Pulse 72; Resp 18; Pulse Ox 100% on R/A; rv 03:00 BP 113 / 63; Pulse 76; Resp 20; Temp 98.5; Pulse Ox 100% on R/A; rv 04:00 BP 113 / 55; Pulse 72; Resp 16; Pulse Ox 100% on R/A; rv 04:45 BP 118 / 60; Pulse 69; Resp 16; Pulse Ox 100% on R/A; rv 05:57 BP 120 / 57; Pulse 67; Resp 16; Temp 98.6; Pulse Ox 100% on R/A; rv 03/31 23:36 Body Mass Index 37.25 (111.13 kg, 172.72 cm) iw ED Course: 03/31 23:32 Patient arrived in ED. cl3 23:38 Triage completed. iw 23:39 Dat Hernandez MD is Attending Physician. rn 04/01 00:00 No provider procedures requiring assistance completed. Inserted saline lock: 18 gauge rv in right antecubital area, using aseptic technique. Blood collected. 00:00 Initial lab(s) drawn, by ED staff, sent to lab. Inserted saline lock: 20 gauge in left rv wrist, using aseptic technique. ,using aseptic technique. by LAXMI SERRATO. 00:02 Chirag Cabrera RN is Primary Nurse. rv 00:15 Patient has correct armband on for positive identification. monitoring manager on. Pulse rv ox on. NIBP on. 00:15 Arm band placed on right wrist. Patient placed in the treatment room, on a stretcher, rv Patient notified of wait time. 00:45 initiated a transfer with Cady Wesley from [facility]. Cady 2 stated " the [facility] and [facility] are at capacity we can try [facility] they should have beds. 01:20 Doc to doc with the GI specialist from [facility]. [facility] 02:00 Cady Wesley called to inform us that the hospitalist from [place] [address] wants the patient in an IMU bed. Cady stated " The [facility] will make an IMU bed for the patient. We also need the Covid results.". 02:45 Cady Wesley called back to inform us that " [facility] doesn't have any [facility] IMU beds so we will try to initiate with [facility].". 03:00 Doc to Doc with the GI specialist from [facility]. mw2 03:56 Doc to Doc with the Hospitalist from [facility]. mw2 03:58 administrative approval given by Cady Wesley/ patient has been accepted to [address] 25 tower bed 2514/ Dr. Sullivan has accepted the patinet in transfer/ report to be called to [phone]. 05:58 IV is patent, with fluids infusing freely, with good blood return, Patient transferred, rv IV remains in place. Administered Medications: 00:03 Drug: NS 0.9% 1000 ml Route: IV; Rate: 1000 ml; Site: right antecubital; rv 01:00 Follow up: IV Status: Completed infusion; IV Intake: 1000ml rv 00:03 Drug: ProTONIX 40 mg Route: IVP; Site: right antecubital; rv 04:59 Follow up: Response: No adverse reaction rv 00:03 Drug: ProTONIX 8 mg/hr Route: IV; Rate: 25 ml/hr; Site: left wrist; rv 04:59 Follow up: IV Status: Infusion continued upon transfer rv 00:30 Drug: NS 0.9% 1000 ml Route: IV; Rate: 1 bolus; Site: left wrist; rv 04:59 Follow up: IV Status: Completed infusion; IV Intake: 1000ml rv 00:36 Drug: Zofran (Ondansetron) 4 mg Route: IVP; Site: left wrist; rv 04:59 Follow up: Response: No adverse reaction rv Medication: 04:57 Blood products: PRBCs X 1 unit given. See transfusion record. rv Intake: 01:00 IV: 1000ml; Total: 1000ml. rv 04:59 IV: 1000ml; Total: 2000ml. rv Outcome: 00:55 ER care complete, transfer ordered by . rn 05:58 Transferred by [facility] to [facility], Transfer form completed. rv X-rays sent w/ patient. 05:58 Condition: stable 05:58 Instructed on the need for transfer. 05:58 Patient left the ED. rv Signatures: Iliana Kearney RN RN Dat Hernandez MD MD rn [place], MyKena mw2 Chirag Cabrera RN RN rv Wilfredo Alvarado cl3 Corrections: (The following items were deleted from the chart) 04:04 00:45 initiated a transfer with Cady Wesley from [facility] mw2 mw2
--- NOTE | 2020-04-01 00:56 | EDPHYS ---
Physician Documentation [facility] Name: José Klein Age: 69 yrs Sex: Male : 1950 Arrival Date: 03/31/2020 Time: 23:32 Bed 3 Private MD: ED Physician Dat Hernandez HPI: 03/31 23:49 This 69 yrs old Male presents to ER via Wheelchair with complaints of Low rn Blood Pressure, blood in stool. 23:49 The patient presents to the emergency department with rectal bleeding, a moderate rn amount, dark red blood with bowel movement melena, with multiple such episodes, 2 times since symptom onset. Onset: The symptoms/episode began/occurred yesterday. Abdominal pain: described as achy, crampy, located in the epigastric area, that does not radiate. Modifying factors: The symptoms are alleviated by nothing, the symptoms are aggravated by nothing. Severity of symptoms: At their worst the symptoms were moderate in the emergency department the symptoms are unchanged. The patient has not experienced similar symptoms in the past. The patient has been recently seen by a physician:. Reports hx of gastric bypass in 2008, last 2 days with dark black stool, noticed redness/blood when in toilet. + worsening fatigue and weakness, no syncope, no chest pain. No blood thinners. Recently put on meloxicam. No hematemesis. . Historical: - Allergies: 23:38 PENICILLINS; iw - PMHx: 23:38 Hypertension; iw - Immunization history:: Adult Immunizations up to date. - Family history:: not pertinent. - Social history:: Smoking status: unknown. - Hospitalizations: : No recent hospitalization is reported. ROS: 23:49 Constitutional: Negative for fever, chills, and weight loss, Eyes: Negative for injury, rn pain, redness, and discharge, Neck: Negative for injury, pain, and swelling, Cardiovascular: Negative for chest pain, palpitations, and edema, Respiratory: Negative for shortness of breath, cough, wheezing, and pleuritic chest pain, Abdomen/GI: + upper abd pain and blood in stools Back: Negative for injury and pain, : Negative for injury, bleeding, discharge, and swelling, MS/Extremity: Negative for injury and deformity, Skin: Negative for injury, rash, and discoloration, Neuro: Negative for headache, numbness, tingling, and seizure. Exam: 23:49 Constitutional: This is a well developed, well nourished patient who is awake, alert, rn pale, weak, requires assistance into bed Head/Face: Normocephalic, atraumatic. Eyes: Pale conjunctivae ENT: dry MM Cardiovascular: Regular rate and rhythm. No pulse deficits. Respiratory: No increased work of breathing, no retractions or nasal flaring. Abdomen/GI: soft, mild epigastric tenderness, no rebound Skin: Pale skin, no cyanosis MS/ Extremity: Pulses equal, no cyanosis. Neuro: Awake and alert, GCS 15 Vital Signs: 23:36 BP 78 / 48; Pulse 82; Resp 16; Temp 97.6; Pulse Ox 100% on R/A; Weight 111.13 kg; iw Height 5 ft. 8 in. (172.72 cm); 04/01 00:00 BP 96 / 60; Pulse 69; Resp 16; Pulse Ox 99% on R/A; rv 00:15 BP 69 / 40; Pulse 63; Resp 16; Pulse Ox 100% on R/A; rv 00:30 BP 86 / 51; Pulse 62; Resp 15; Pulse Ox 100% on R/A; rv 00:45 BP 107 / 70; Pulse 69; Resp 16; Pulse Ox 99% on R/A; rv 00:53 BP 107 / 70; rn 01:00 BP 110 / 44; Pulse 69; Resp 16; Pulse Ox 100% on R/A; rv 02:00 BP 111 / 49; Pulse 72; Resp 18; Pulse Ox 100% on R/A; rv 03:00 BP 113 / 63; Pulse 76; Resp 20; Temp 98.5; Pulse Ox 100% on R/A; rv 04:00 BP 113 / 55; Pulse 72; Resp 16; Pulse Ox 100% on R/A; rv 04:45 BP 118 / 60; Pulse 69; Resp 16; Pulse Ox 100% on R/A; rv 05:57 BP 120 / 57; Pulse 67; Resp 16; Temp 98.6; Pulse Ox 100% on R/A; rv 03/31 23:36 Body Mass Index 37.25 (111.13 kg, 172.72 cm) iw MDM: 03/31 23:39 Patient medically screened. rn 04/01 00:52 Differential diagnosis: UGIB, gastric ulcer. rn 00:53 Data reviewed: vital signs, nurses notes. rn 00:53 Counseling: I had a detailed discussion with the patient and/or guardian regarding: the rn historical points, exam findings, and any diagnostic results supporting the discharge/admit diagnosis, lab results, the need to transfer to another facility, for higher level of care, [facility] does not immediately have the required specialist. Response to treatment: the patient's symptoms have markedly improved after treatment, and as a result, I will admit patient. ED course: Pt improved, better color, improving BP with fluids, one unit blood ordered, arranging transfer to [facility] because we do not have GI.. 03/31 23:41 Order name: Basic Metabolic Panel; Complete Time: 00:39 rn 03/31 23:41 Order name: CBC with Diff rn 03/31 23:41 Order name: Hepatic Function rn 03/31 23:41 Order name: Lipase rn 03/31 23:41 Order name: Type And Screen rn 03/31 23:41 Order name: Lactate rn 03/31 23:57 Order name: Glucose, Ancillary Testing; Complete Time: 00:39 EDMS 04/01 00:15 Order name: CBC with Automated Diff; Complete Time: 00:39 EDMS 04/01 00:30 Order name: Liver (Hepatic) Function; Complete Time: 00:39 EDMS 04/01 00:30 Order name: Lipase; Complete Time: 00:39 EDMS 04/01 00:41 Order name: Lactate; Complete Time: 00:53 EDMS 04/01 01:16 Order name: COVID-19 mw2 04/01 01:24 Order name: Type and Screen EDND 03/31 23:41 Order name: IV Saline Lock; Complete Time: 00:14 rn 03/31 23:41 Order name: Labs collected and sent; Complete Time: 00:14 rn 03/31 23:41 Order name: EKG; Complete Time: 23:42 rn 03/31 23:41 Order name: EKG - Nurse/Tech; Complete Time: 01:13 rn 04/01 02:21 Order name: PT-INR rn 04/01 02:28 Order name: SARS-COV-2 RT PCR; Complete Time: 03:11 EDND 04/01 02:58 Order name: Lactate Sepsis 2 HR Follow-up; Complete Time: 03:11 EDMS 04/01 03:05 Order name: Protime (+INR); Complete Time: 03:11 EDMS Administered Medications: 00:03 Drug: NS 0.9% 1000 ml Route: IV; Rate: 1000 ml; Site: right antecubital; rv 01:00 Follow up: IV Status: Completed infusion; IV Intake: 1000ml rv 00:03 Drug: ProTONIX 40 mg Route: IVP; Site: right antecubital; rv 04:59 Follow up: Response: No adverse reaction rv 00:03 Drug: ProTONIX 8 mg/hr Route: IV; Rate: 25 ml/hr; Site: left wrist; rv 04:59 Follow up: IV Status: Infusion continued upon transfer rv 00:30 Drug: NS 0.9% 1000 ml Route: IV; Rate: 1 bolus; Site: left wrist; rv 04:59 Follow up: IV Status: Completed infusion; IV Intake: 1000ml rv 00:36 Drug: Zofran (Ondansetron) 4 mg Route: IVP; Site: left wrist; rv 04:59 Follow up: Response: No adverse reaction rv Disposition: 04/01/20 00:55 Transfer ordered to [facility]. Diagnosis are Upper GI bleed, Hypotension, unspecified, Anemia, unspecified. - Reason for transfer: Higher level of care. - Accepting physician is . - Condition is Stable. - Problem is new. - Symptoms have improved. Critical care time excluding procedures: 00:53 Critical care time: Bedside Care: 25 minutes, Consultation: 5 minutes. Total time: 30 rn minutes Signatures: Dispatcher [employer] EDND Iliana Kearney RN RN iw Nieto, Roman, MD MD rn Vicente, Ronaldo, RN RN rv Corrections: (The following items were deleted from the chart) 05:58 00:55 04/01/2020 00:55 Transfer ordered to [facility]. rv Diagnosis is Upper GI bleed; Hypotension, unspecified; Anemia, unspecified. Reason for transfer: Higher level of care. Accepting physician is . Condition is Stable. Problem is new. Symptoms have improved. rn
[2020-04-01 02:51] LABS: Protime INR 1.07
--- NOTE | 2020-04-01 10:57 | EKG ---
Test Date: 2020-04-01 Test Time: 00:25:38 Extra Hand: RV MEASUREMENT RESULTS: Intervals: Rate: 52 NE: 138 QRSD: 86 QT: 422 QTc: 392 [place]: P: -2 NE: 138 QRS: 14 T: 27 INTERPRETIVE STATEMENTS: Sinus bradycardia Otherwise normal ECG Compared to ECG 10/23/2018 15:27:34 No significant changes Electronically Signed On 04-01-20 10:56:19 DIRECTOR OF GROUP COUNSELING PROGRAM by Mat Teague
[2020-04-06 14:35] VITALS: O2SAT 100
[2020-04-06 14:41] VITALS: BP 120/57; TEMP 98.6
== END 2020-04-01 05:58 | disposition short-term general hospital (02) ==
LOC: ER 23:30
PROC: 30233N1 Transfusion of Nonautologous Red Blood Cells into Peripheral Vein, Percutaneous Approach (ICD-10-PCS; principal; 2020-04-01)
DX: D64.9 Anemia, unspecified (principal); I95.9 Hypotension, unspecified; Z20.828 Contact with and (suspected) exposure to other viral communicable diseases; I10 Essential (primary) hypertension; Z88.0 Allergy status to penicillin
CPT/HCPCS: 93005; 85025; 80048; 36415 ×2; 86900; 86850; 85610; 86901; 82947; 80076; 83605 ×2; 83690; 36430 ×2; 99285; U0003; P9016; J7050; J7030; J2405

== ENCOUNTER 2023-08-24 06:00 | Day surgery (SDC) | payer OTHER ==
[2023-08-22 09:22] LABS: Absolute Basophils 0.1 K/uL (0-0.5); Absolute Eosinophils 0.2 K/uL (0-0.5); Absolute Lymphocytes (CBC) 1.2 K/uL (0.7-4.9); Absolute Monocytes 0.5 K/uL (0.1-1.3); Absolute Neutrophil 3.5 K/uL (1.8-8.0); Basophils % 1.5 % (0-1.3); Eosinophils % 4.5 % (0-4.4); Hematocrit 40.7 % (39.6-49.0); Hemoglobin 13.8 g/dL (13.6-17.9); Lymphocytes % 22.3 % (15.3-44.8); MCH 31.9 pg (27.0-35.0); MCV 93.9 fL (80-100); Monocytes % 8.5 % (3.3-12.3); Neutrophils % 63.2 % (41.7-73.7); Nucleated Red Blood Cells % 0.5 % (0-0); Platelets 232 thou/uL (152-406); RBC Red Blood Cell Count 4.33 M/uL (4.33-5.43); Red Cell Distribution Width 12.7 % (12.1-15.2)
[2023-08-22 09:26] LABS: PTT, Activated Partial Thromb 30.2 SECONDS (24.3-36.9)
[2023-08-22 09:27] LABS: PT Prothrombin Time 10.9 SECONDS (9.5-12.5); Protime INR 0.99
[2023-08-22 09:37] LABS: Anion Gap 5.4 mEq/L (5.0-15.0); Potassium 3.4 mEq/L (3.5-5.1)
--- NOTE | 2023-08-22 09:49 | RAD REPORT ---
EXAM DESCRIPTION: RAD - Chest Pa And Lat (2 Views) - 08/22/2023 9:11 am CLINICAL HISTORY: Pre op pending rotator cuff repair. Hypertension COMPARISON: Chest Pa And Lat (2 Views) dated 10/23/2018 TECHNIQUE: PA and lateral views of the chest were obtained. FINDINGS: The lungs are clear. Heart size is normal and central vasculature is within normal limits. No pleural effusion or pneumothorax seen. No acute bony finding noted. IMPRESSION: No acute cardiopulmonary process.
--- NOTE | 2023-08-22 13:05 | EKG ---
Test Date: 2023-08-22 Test Time: 08:57:36 Supervisor Curing Room: MICHAELA MEASUREMENT RESULTS: Intervals: Rate: 59 PA: 192 QRSD: 94 QT: 390 QTc: 386 [place]: P: 60 PA: 192 QRS: 0 T: 58 INTERPRETIVE STATEMENTS: Sinus bradycardia Low voltage QRS Borderline ECG Compared to ECG 04/01/2020 00:25:38 Low QRS voltage now present Electronically Signed On 08-22-23 13:05:01 CDT by Brad Doss
[2023-08-24] MEDS ORDERED: Ringers Lactate 1,000 ML IV ONE (06:23)
[2023-08-24] MEDS ORDERED: EPINEPHRINE 1 MG/ML VIAL ONE ×2 (07:07→07:28)
[2023-08-24] MEDS ORDERED: dexAMETHasone 10 MG/ML VIAL ONE (07:07)
[2023-08-24] MEDS ORDERED: LIDOCAINE 1% MPF 5 ML VIAL ONE ×2 (07:07→07:35)
[2023-08-24] MEDS ORDERED: FENTANYL CITR 100 MCG/2 ML ONE (07:07)
[2023-08-24] MEDS ORDERED: MIDAZOLAM HCL 2 MG/2 ML INJ ONE (07:08)
[2023-08-24] MEDS ORDERED: ROPLVACAINE HCL 20 ML ONE (07:08)
[2023-08-24] MEDS ORDERED: CEFAZOLIN SODIUM 2 GM/VIAL ONE (07:11)
[2023-08-24] MEDS ORDERED: propofoL 200 MG/20 ML VIAL IV ONE (07:35)
[2023-08-24] MEDS ORDERED: ROCURONIUM 50 MG/5 ML VIAL IV ONE (07:36)
[2023-08-24] MEDS ORDERED: KETOROLAC 30 MG/ML INJ ONE (07:38)
[2023-08-24] MEDS ORDERED: dexAMETHasone 4 MG/ML VIAL ONE (07:38)
[2023-08-24] MEDS ORDERED: ONDANSETRON 4 MG/2 ML VIAL ONE (07:38)
[2023-08-24] MEDS ORDERED: EPHEDRINE SULF 50 MG/ML VIAL ONE (09:11)
--- NOTE | 2023-08-24 11:03 | RAD REPORT ---
EXAM DESCRIPTION: RAD - Shoulder 1 View - 08/24/2023 10:23 am CLINICAL HISTORY: POST OP COMPARISON: No comparisons FINDINGS: Single frontal postoperative projection submitted of the right shoulder. Mild AC joint and glenohumeral joint arthritic changes. No unexpected immediate postoperative finding.
--- NOTE | 2023-08-24 19:16 | P.BOP ---
Preoperative diagnosis: right shoulder rotator cuff tear, biceps tenotomy Postoperative diagnosis: same, right shoulder SLAP tear Primary procedure: Right shoulder arthroscopic rotator cuff repair, Secondary procedure: Right shoulder arthroscopic biceps tenotomy with SLAP debridement Other procedure(s): Right shoulder arthroscopic subscapularis debridement Estimated blood loss: 5 cc Specimen: None Findings: See dictation Anesthesia: General Complications: None Implants: 4.75 mm Arthrex swivel lock Fluids & blood products: Per anesthesia record Transferred to: Recovery Room Condition: Good
[2023-08-25 14:33] VITALS: BP 134/56; TEMP 97; O2SAT 98
== END 2023-08-24 11:21 | disposition home or self-care (01) ==
LOC: OR 06:00
PROVIDERS: ATTEND Orthopaedic Surgery Sports Medicine
PROC: 0LM14ZZ Reattachment of Right Shoulder Tendon, Percutaneous Endoscopic Approach (ICD-10-PCS; principal; 2023-08-24 08:00)
DX: M75.101 Unspecified rotator cuff tear or rupture of right shoulder, not specified as traumatic (principal); M75.21 Bicipital tendinitis, right shoulder; M25.811 Other specified joint disorders, right shoulder; I10 Essential (primary) hypertension; E03.9 Hypothyroidism, unspecified; Z88.0 Allergy status to penicillin
CPT/HCPCS: 29827; 29822; 93005; 85025; 80048; 36415; 85610; 82947; 85730; 71046; 73020; J2704; J1100 ×2; J2001 ×2; J2250; J3010; J0171 ×2; J2405; J7120